=== PATIENT | female | born 1945 | race Caucasian/White ===

== ENCOUNTER 2021-11-24 16:55 | Emergency (ER) | payer MEDICARE, OTHER ==
[2021-11-24 21:10] LABS: HEMOGLOBIN 11.5 gm/dl (12.3-15.3); RED BLOOD COUNT 4.13 M/UL (4.00-5.10); WHITE BLOOD COUNT 12.3 K/UL (4.5-11.0)
== END 2021-11-24 22:45 | disposition home or self-care (01) ==
LOC: ER1 16:55
PROVIDERS: Student in an Organized Health Care Education/Training Program
DX: S93.402A Sprain of unspecified ligament of left ankle, initial encounter (principal); N18.9 Chronic kidney disease, unspecified; I50.9 Heart failure, unspecified; W19.XXXA Unspecified fall, initial encounter; Y92.009 Unspecified place in unspecified non-institutional (private) residence as the place of occurrence of the external cause
CPT/HCPCS: 70450; 72131; 72192; 73080; 73630; 80053; 82550; 82553; 84484; 85025; 93005; 99284